=== PATIENT | male | born 1975 | race African-American/Black ===

== ENCOUNTER 2021-03-11 02:50 | Inpatient (IN) | payer SELFPAY ==
[2021-03-11] MEDS ORDERED: Dextrose 5% in Water 1,000 ML IV PRN (05:04)
[2021-03-11] MEDS ORDERED: Ondansetron PF 4 MG/2 ML Vial IVP PRN (05:04)
[2021-03-11] MEDS ORDERED: Dextrose 50% Abboject 50 ML SYRINGE SLOW IVP PRN (05:04)
[2021-03-11] MEDS ORDERED: Acetaminophen 325 MG TAB PO PRN (05:04)
[2021-03-11] MEDS ORDERED: Ondansetron ODT 4 MG TAB PO PRN (05:04)
[2021-03-11 05:24] VITALS: BMI 25.9
[2021-03-11] MEDS: Piperacillin/Tazobactam 4.5 GM in Sodium Chloride 0.9% 100 ML IVPB SCH ×3 (05:57→23:04)
[2021-03-11] MEDS: Sodium Chloride 0.9% 1,000 ML IV SCH ×3 (05:57→18:36)
[2021-03-11] MEDS: HumaLOG 300 UNITS/3 ML VIAL SC PRN ×3 (05:58→20:34)
[2021-03-11] MEDS: Vancomycin 1.5 GRAM/300 ML BAG 1.5 GM in Premix Bag 1 BAG IVPB SCH ×2 (06:42→18:37)
[2021-03-11 08:22] LABS: Hemoglobin A1c 12.7 % (4.0-6.0)
[2021-03-11 08:26] LABS: Hemoglobin 13.3 g/dL (14.0-18.0); Mean Corpuscular HGB CONC 33.5 g/dL (32.0-36.0); Mean Corpuscular Hemoglobin 29.7 pg (27.0-31.0); Mean Corpuscular Volume 88.7 fL (78.0-98.0); Mean Platelet Volume 7.8 fL (7.4-10.4); Platelet Count 241 thou/uL (130-400); RBC Distribution Width 11.6 % (11.5-14.5); Red Blood Cell (RBC) Count 4.49 mill/uL (4.70-6.10); White Blood Cell (WBC) Count 12.4 thou/uL (4.8-10.8)
[2021-03-11 08:41] LABS: ALT (SGPT) 7 U/L (8-55); AST (SGOT) 9 U/L (5-34); Albumin 3.5 g/dL (3.5-5.0); Alkaline Phosphatase 80 U/L (40-110); Anion Gap 16 mmol/L (10-20); BUN (Urea Nitrogen) 22 mg/dL (8.9-20.6); Bilirubin, Total 0.4 mg/dL (0.2-1.2); Calc. Creatinine Clearance 87 mL/min (70-130); Calcium 9.1 mg/dL (7.8-10.44); Carbon Dioxide 25 mmol/L (22-29); Chloride 97 mmol/L (98-107); Globulin 3.4 g/dL (2.4-3.5); Glucose 441 mg/dL (70-105); Potassium 3.7 mmol/L (3.5-5.1); Protein, Total 6.9 g/dL (6.0-8.3); Sodium 134 mmol/L (136-145)
[2021-03-11 08:43] LABS: INR-International Normal Ratio 0.9; Prothrombin Time 12.5 sec (12.0-14.7)
[2021-03-11] MEDS: Citalopram 20 MG TAB PO SCH (08:59)
[2021-03-11] MEDS: Lisinopril 5 MG TAB PO SCH (08:59)
[2021-03-11] MEDS: Gabapentin 300 MG CAP PO SCH ×3 (08:59→20:34)
[2021-03-11] MEDS: Allopurinol 100 MG TAB PO SCH (08:59)
[2021-03-11] MEDS ORDERED: HumuLIN 70/30 (300 UNITS/3 ML VIAL) SC SCH (09:00)
[2021-03-11 09:01] LABS: Band 1 % (5-11); Lymphocytes 10 % (21-51); MDiff Complete? YES; Monocytes 3 % (0-10); Neutrophil 86 % (42-75); Platelet Morphology Comment Appears Adequate; RBC Morphology Normal
[2021-03-11] MEDS: HYDROcodone/Acetaminophen 5/325 mg Tablet PO PRN ×2 (09:09→20:33)
[2021-03-11] MEDS: HumuLIN 70/30 (300 UNITS/3 ML VIAL) SC SCH ×2 (09:10→20:35)
[2021-03-11] MEDS ORDERED: AFRIN NASAL MIST 15 ML BOT ONE (15:37)
[2021-03-11] MEDS ORDERED: Sodium Chloride 0.9% 10 ML ONE (16:16)
[2021-03-11] MEDS ORDERED: Hydrocortisone 1% Cream 30 GM TUBE ONE (16:16)
[2021-03-11] MEDS ORDERED: Chlorhexidine Gluconate 15 ML UDCUP SSP ONE (16:16)
[2021-03-11] MEDS ORDERED: Lidocaine 1% w/Epinephrine 1:100K 20 ML VIAL ONE (16:16)
[2021-03-11] MEDS ORDERED: Lidocaine 2% Jelly 5 ML TUBE ONE (16:19)
[2021-03-11] MEDS ORDERED: Fentanyl 250 MCG/5 ML VIAL ONE (16:19)
[2021-03-11] MEDS ORDERED: Midazolam HCl 2 mg/2 ml Vial ONE (16:19)
[2021-03-11] MEDS ORDERED: PROPOFOL 200 MG/20 ML VIAL ONE (16:46)
[2021-03-11] MEDS ORDERED: diphenhydrAMINE 50 MG/ML VIAL ONE (16:46)
[2021-03-11] MEDS ORDERED: Ketorolac Tromethamine 30 MG/ML VIAL ONE (16:46)
[2021-03-11] MEDS ORDERED: Glycopyrrolate 0.2 MG/ML 5 ML SYRINGE ONE (16:46)
[2021-03-11] MEDS ORDERED: PHENYLEPHRINE-NS 100 MCG/ML 10 ML SYRINGE ONE (16:46)
[2021-03-11] MEDS ORDERED: Dexamethasone 20 MG/5 ML VIAL ONE (16:46)
[2021-03-11] MEDS ORDERED: Ondansetron PF 4 MG/2 ML Vial ONE (16:46)
[2021-03-11] MEDS ORDERED: Rocuronium Bromide 10 MG/ML (10ML VIAL) ONE (16:46)
[2021-03-11] MEDS ORDERED: SUGAMMADEX SODIUM 200 MG/2 ML VIAL ONE (17:32)
[2021-03-11] MEDS ORDERED: Ondansetron HCl/PF 4 MG/2 ML Vial IVP PRN (17:54)
[2021-03-11] MEDS ORDERED: Promethazine HCl 25 MG/ML VIAL IM PRN (17:54)
[2021-03-11] MEDS: Chlorhexidine Gluconate 15 ML UDCUP SSP SCH (20:34)
[2021-03-11] MEDS: Atorvastatin Calcium 20 MG TAB PO SCH (20:34)
[2021-03-11] MEDS ORDERED: Simvastatin 40 MG TAB PO SCH (21:00)
[2021-03-12] MEDS: Sodium Chloride 0.9% 1,000 ML IV SCH ×3 (00:41→20:45)
[2021-03-12] MEDS: Piperacillin/Tazobactam 4.5 GM in Sodium Chloride 0.9% 100 ML IVPB SCH ×3 (04:44→21:51)
[2021-03-12] MEDS: HYDROcodone/Acetaminophen 5/325 mg Tablet PO PRN ×4 (05:31→20:48)
[2021-03-12] MEDS: Vancomycin 1.5 GRAM/300 ML BAG 1.5 GM in Premix Bag 1 BAG IVPB SCH ×2 (05:31→18:09)
[2021-03-12] MEDS: HumaLOG 300 UNITS/3 ML VIAL SC PRN ×3 (05:32→17:18)
[2021-03-12 07:57] LABS: #Lymphocytes 2.6 thou/uL (1.20-3.40); #Monocytes 1.1 thou/uL (0.11-0.59); #Neutrophils 12.2 thou/uL (1.40-6.50); %Basophils 0.1 % (0.0-1.0); %Eosinophils 0.2 % (0.0-10.0); %Lymphocytes 16.3 % (21.0-51.0); %Monocytes 6.6 % (0.0-10.0); %Neutrophils 76.7 % (42.0-75.0); Hemoglobin 12.3 g/dL (14.0-18.0); Mean Corpuscular HGB CONC 33.5 g/dL (32.0-36.0); Mean Corpuscular Hemoglobin 29.9 pg (27.0-31.0); Mean Corpuscular Volume 89.4 fL (78.0-98.0); Mean Platelet Volume 8.4 fL (7.4-10.4); Platelet Count 227 thou/uL (130-400); RBC Distribution Width 11.7 % (11.5-14.5); Red Blood Cell (RBC) Count 4.12 mill/uL (4.70-6.10); White Blood Cell (WBC) Count 15.9 thou/uL (4.8-10.8)
[2021-03-12 08:08] LABS: Chloride 105 mmol/L (98-107); Potassium 4.3 mmol/L (3.5-5.1); Sodium 137 mmol/L (136-145)
[2021-03-12 08:09] LABS: Calcium 8.5 mg/dL (7.8-10.44); Glucose 205 mg/dL (70-105)
[2021-03-12 08:11] LABS: Anion Gap 14 mmol/L (10-20); Carbon Dioxide 22 mmol/L (22-29)
[2021-03-12 08:13] LABS: BUN (Urea Nitrogen) 20 mg/dL (8.9-20.6); Calc. Creatinine Clearance 105 mL/min (70-130)
[2021-03-12] MEDS: Chlorhexidine Gluconate 15 ML UDCUP SSP SCH ×2 (09:04→20:37)
[2021-03-12] MEDS: Allopurinol 100 MG TAB PO SCH (09:04)
[2021-03-12] MEDS: Gabapentin 300 MG CAP PO SCH ×3 (09:04→20:41)
[2021-03-12] MEDS: HumuLIN 70/30 (300 UNITS/3 ML VIAL) SC SCH ×2 (09:05→20:43)
[2021-03-12] MEDS: Lisinopril 5 MG TAB PO SCH (09:05)
[2021-03-12] MEDS: Citalopram 20 MG TAB PO SCH (09:05)
[2021-03-12] MEDS: Atorvastatin Calcium 20 MG TAB PO SCH (20:37)
[2021-03-13] MEDS: HYDROcodone/Acetaminophen 5/325 mg Tablet PO PRN ×3 (00:31→20:59)
[2021-03-13] MEDS: Piperacillin/Tazobactam 4.5 GM in Sodium Chloride 0.9% 100 ML IVPB SCH ×3 (05:31→22:03)
[2021-03-13 05:38] LABS: #Lymphocytes 3.3 thou/uL (1.20-3.40); #Neutrophils 4.9 thou/uL (1.40-6.50); %Basophils 0.4 % (0.0-1.0); %Eosinophils 0.4 % (0.0-10.0); %Lymphocytes 35.5 % (21.0-51.0); %Monocytes 10.3 % (0.0-10.0); %Neutrophils 53.4 % (42.0-75.0); Hemoglobin 11.8 g/dL (14.0-18.0); Mean Corpuscular HGB CONC 32.4 g/dL (32.0-36.0); Mean Corpuscular Hemoglobin 29.3 pg (27.0-31.0); Mean Corpuscular Volume 90.6 fL (78.0-98.0); Mean Platelet Volume 7.6 fL (7.4-10.4); Platelet Count 226 thou/uL (130-400); RBC Distribution Width 11.8 % (11.5-14.5); Red Blood Cell (RBC) Count 4.04 mill/uL (4.70-6.10); White Blood Cell (WBC) Count 9.2 thou/uL (4.8-10.8)
[2021-03-13 05:58] LABS: Vancomycin, Trough 17.4 ug/mL
[2021-03-13 06:00] LABS: Anion Gap 9 mmol/L (10-20); BUN (Urea Nitrogen) 17 mg/dL (8.9-20.6); Calc. Creatinine Clearance 109 mL/min (70-130); Calcium 8.1 mg/dL (7.8-10.44); Carbon Dioxide 26 mmol/L (22-29); Chloride 108 mmol/L (98-107); Glucose 169 mg/dL (70-105); Potassium 3.9 mmol/L (3.5-5.1); Sodium 139 mmol/L (136-145)
[2021-03-13] MEDS: Sodium Chloride 0.9% 1,000 ML IV SCH ×2 (06:14→14:59)
[2021-03-13] MEDS: Vancomycin 1.5 GRAM/300 ML BAG 1.5 GM in Premix Bag 1 BAG IVPB SCH ×2 (06:28→18:14)
[2021-03-13] MEDS: Allopurinol 100 MG TAB PO SCH (08:41)
[2021-03-13] MEDS: Lisinopril 5 MG TAB PO SCH (08:41)
[2021-03-13] MEDS: Citalopram 20 MG TAB PO SCH (08:41)
[2021-03-13] MEDS: Gabapentin 300 MG CAP PO SCH ×3 (08:41→20:54)
[2021-03-13] MEDS: Chlorhexidine Gluconate 15 ML UDCUP SSP SCH ×2 (08:41→20:53)
[2021-03-13] MEDS: HumuLIN 70/30 (300 UNITS/3 ML VIAL) SC SCH ×2 (08:42→20:51)
[2021-03-13] MEDS ORDERED: Loratadine 10 MG TAB PO PRN (09:52)
[2021-03-13] MEDS ORDERED: guaiFENesin ER 600 MG TAB PO SCH ×2 (10:00)
[2021-03-13] MEDS ORDERED: Ketorolac Tromethamine 30 MG/ML VIAL IVP SCH ×2 (11:30→18:00)
[2021-03-13] MEDS: HumaLOG 300 UNITS/3 ML VIAL SC PRN ×2 (11:56→17:44)
[2021-03-13] MEDS: guaiFENesin ER 600 MG TAB PO SCH (20:55)
[2021-03-13] MEDS: Atorvastatin Calcium 20 MG TAB PO SCH (20:56)
[2021-03-14] MEDS: HYDROcodone/Acetaminophen 5/325 mg Tablet PO PRN (02:16)
[2021-03-14] MEDS: Sodium Chloride 0.9% 1,000 ML IV SCH ×2 (02:17→14:31)
[2021-03-14] MEDS: Piperacillin/Tazobactam 4.5 GM in Sodium Chloride 0.9% 100 ML IVPB SCH ×2 (05:08→14:33)
[2021-03-14] MEDS: Vancomycin 1.5 GRAM/300 ML BAG 1.5 GM in Premix Bag 1 BAG IVPB SCH (06:23)
[2021-03-14 07:35] VITALS: BP 124/81; TEMP 98.1
[2021-03-14] MEDS: guaiFENesin ER 600 MG TAB PO SCH (09:58)
[2021-03-14] MEDS: Chlorhexidine Gluconate 15 ML UDCUP SSP SCH (09:58)
[2021-03-14] MEDS: Citalopram 20 MG TAB PO SCH (09:59)
[2021-03-14] MEDS: Allopurinol 100 MG TAB PO SCH (09:59)
[2021-03-14] MEDS: Gabapentin 300 MG CAP PO SCH ×2 (09:59→14:34)
[2021-03-14] MEDS: Lisinopril 5 MG TAB PO SCH (10:00)
[2021-03-14] MEDS: HumuLIN 70/30 (300 UNITS/3 ML VIAL) SC SCH (10:03)
== END 2021-03-14 15:00 | disposition home or self-care (01) | DRG 137 ==
LOC: ERS 02:50 → T4-B 04:03 → OBSVTOIN 10:32
PROVIDERS: ADMIT Student in an Organized Health Care Education/Training Program; ATTEND Internal Medicine
PROC: 0J910ZZ Drainage of Face Subcutaneous Tissue and Fascia, Open Approach (ICD-10-PCS; principal; 2021-03-11)
PROC: 0CDXXZ0 Extraction of Lower Tooth, Single, External Approach (ICD-10-PCS; 2021-03-11)
DX: K12.2 Cellulitis and abscess of mouth (principal); U07.1 COVID-19; E87.2 Acidosis; N17.9 Acute kidney failure, unspecified; Z85.118 Personal history of other malignant neoplasm of bronchus and lung; K05.219 Aggressive periodontitis, localized, unspecified severity; E11.65 Type 2 diabetes mellitus with hyperglycemia; I10 Essential (primary) hypertension; F17.210 Nicotine dependence, cigarettes, uncomplicated; E78.5 Hyperlipidemia, unspecified; K02.9 Dental caries, unspecified; F32.9 Major depressive disorder, single episode, unspecified; Z91.14 Patient's other noncompliance with medication regimen; Z79.4 Long term (current) use of insulin; Z79.899 Other long term (current) drug therapy; T38.3X6A Underdosing of insulin and oral hypoglycemic [antidiabetic] drugs, initial encounter; Z90.89 Acquired absence of other organs; Z92.3 Personal history of irradiation; Z92.21 Personal history of antineoplastic chemotherapy; Z98.890 Other specified postprocedural states
CPT/HCPCS: 36415; 36416; 80048; 80053; 80202; 83036; 85007; 85025; 85027; 85610; 85652; 86140; 87070; 87205; 96374; 96375; 99284; G0378; J1100; J1200; J1815; J1885; J2250; J2405; J2543; J2704; J3010; J3370; J3490